=== PATIENT | female | born 1930 | race Caucasian/White ===

== ENCOUNTER 2017-04-09 12:43 | Inpatient (IN) | payer MEDICARE, OTHER ==
[~2017-04-09] VITALS: Ht 160 cm; Wt 58.5 kg
[~2017-04-09 12:43] MED LIST: AMLO10TA80 PO; OLME1TAB11 PO
[2017-04-09] MEDS ORDERED: PROP10TA10 GT (14:36)
[2017-04-09] MEDS ORDERED: ATOR20TA65 PO (14:36)
[2017-04-09] MEDS ORDERED: ACETAMINOPHEN 325MG TABLET PO PRN (18:51)
[2017-04-09] MEDS ORDERED: ONDANSETRON HCL 4MG/2ML VIAL IV PRN (19:00)
[2017-04-09 19:56] VITALS: BP 142/60
[2017-04-09 20:00] VITALS: BP 105/58
[2017-04-09 21:56] LABS: BASOPHILS % 0.4 % (0.0-2.0); EOSINOPHILS % 2.5 % (0.0-5.0); HEMATOCRIT. 34.1 % (36.0-48.0); LYMPHOCYTES % 27.5 % (20.0-50.0); MEAN CORPUSCULAR HEMOGLOBIN 31.7 pg (28.0-32.0); MEAN CORPUSCULAR VOLUME 90.6 fL (81.0-99.0); MONOCYTES % 9.6 % (2.0-8.0); PLATELET 189 x1000/uL (130-400); RED BLOOD CELL COUNT 3.77 mill/uL (4.2-5.4); RED CELL DISTRIBUTION WIDTH 13.1 % (11.6-14.6)
[2017-04-09 22:08] LABS: CHLORIDE 105 mEq/L (98-107)
[2017-04-09 22:23] LABS: CARBON DIOXIDE 27 mEq/L (21-32); HDL CHOLESTEROL 41 mg/dL (40-59); LDL CHOLESTEROL 59 mg/dL (5-100); TOTAL IRON BINDING CAPACITY 248 ug/dL (250-450)
[2017-04-09] MEDS: DEXT 5%/0.45% NACL 1000ML 1,000 ML IV SCH (23:23)
[2017-04-10] VITALS: BP 106/55
[2017-04-10 04:00] VITALS: BP 99/68
[2017-04-10] MEDS: LOSARTAN POTASSIUM 100 MG TABLET PO SCH (06:34)
[2017-04-10] MEDS: HYDROCHLOROTHIAZIDE 12.5MG CAPSULE PO SCH (06:35)
[2017-04-10 07:10] LABS: CLARITY URINE CLEAR (CLEAR); COLOR URINE YELLOW (YELLOW); GLUCOSE URINE NEGATIVE (NEGATIVE); KETONES URINE NEGATIVE (NEGATIVE); LEUKOCYTE ESTERASE URINE NEGATIVE (NEGATIVE); NITRITE URINE NEGATIVE (NEGATIVE); OCCULT BLOOD URINE 1+ (NEGATIVE); PH URINE 6.5 (4.5-8.0); PROTEIN URINE NEGATIVE (NEGATIVE); SPECIFIC GRAVITY URINE 1.013 (1.005-1.030); UROBILINOGEN URINE 0.2 E.U./dL (0.2-1.0)
[2017-04-10 07:44] LABS: PHOSPHORUS 3.1 mg/dL (2.5-4.9)
[2017-04-10 08:00] VITALS: BP 102/57
[2017-04-10] MEDS: AMLODIPINE 10MG TABLET PO SCH (09:00)
[2017-04-10] MEDS ORDERED: ERGOCALCIFEROL 50000UNITS CAPSULE PO SCH (09:00)
[2017-04-10] MEDS: DOCUSATE SODIUM 100MG CAPSULE PO SCH ×2 (09:07→17:52)
[2017-04-10] MEDS: ATORVASTATIN CALCIUM 20MG TABLET PO SCH (09:07)
[2017-04-10] MEDS: CYANOCOBALAMIN/FA/PYRIDOXINE TABLET PO SCH (09:07)
[2017-04-10] MEDS: PANTOPRAZOLE SODIUM 40 MG/VIAL IV SCH (09:07)
[2017-04-10] MEDS: DEXT 5%/0.45% NACL 1000ML 1,000 ML IV SCH ×2 (09:50→23:10)
[2017-04-10 12:00] VITALS: BP 93/49
[2017-04-10 16:00] VITALS: BP 107/66
[2017-04-10 20:00] VITALS: BP 108/67
[2017-04-11] VITALS: BP 111/84
[2017-04-11 04:00] VITALS: BP 122/65
[2017-04-11] MEDS: LOSARTAN POTASSIUM 100 MG TABLET PO SCH (07:32)
[2017-04-11] MEDS: HYDROCHLOROTHIAZIDE 12.5MG CAPSULE PO SCH (07:33)
[2017-04-11 08:00] VITALS: BP 119/70
[2017-04-11] MEDS: PANTOPRAZOLE SODIUM 40 MG/VIAL IV SCH (10:09)
[2017-04-11] MEDS: DOCUSATE SODIUM 100MG CAPSULE PO SCH ×2 (10:09→17:10)
[2017-04-11] MEDS: CYANOCOBALAMIN/FA/PYRIDOXINE TABLET PO SCH (10:09)
[2017-04-11] MEDS: ATORVASTATIN CALCIUM 20MG TABLET PO SCH (10:09)
[2017-04-11] MEDS: AMLODIPINE 10MG TABLET PO SCH (10:10)
[2017-04-11 12:00] VITALS: BP 129/71
[2017-04-11] MEDS: DEXT 5%/0.45% NACL 1000ML 1,000 ML IV SCH (15:02)
[2017-04-11 16:00] VITALS: BP 112/89
[2017-04-11 17:15] LABS: BASOPHILS % 0.4 % (0.0-2.0); EOSINOPHILS % 0.4 % (0.0-5.0); HEMATOCRIT. 36.7 % (36.0-48.0); HEMOGLOBIN. 13.2 g/dL (12.0-16.0); LYMPHOCYTES % 10.3 % (20.0-50.0); MEAN CORPUSCULAR HEMOGLOBIN 32.3 pg (28.0-32.0); MEAN CORPUSCULAR VOLUME 89.7 fL (81.0-99.0); MEAN PLATELET VOLUME 9.3 fl (7.4-10.4); MONOCYTES % 6.9 % (2.0-8.0); PLATELET 200 x1000/uL (130-400); RED BLOOD CELL COUNT 4.09 mill/uL (4.2-5.4); RED CELL DISTRIBUTION WIDTH 12.6 % (11.6-14.6)
[2017-04-11 17:34] LABS: PHOSPHORUS 2.8 mg/dL (2.5-4.9)
[2017-04-11 20:00] VITALS: BP 103/68
[2017-04-12] VITALS: BP 102/50
[2017-04-12 00:28] LABS: CLARITY URINE CLOUDY (CLEAR); COLOR URINE YELLOW (YELLOW); GLUCOSE URINE NEGATIVE (NEGATIVE); KETONES URINE NEGATIVE (NEGATIVE); LEUKOCYTE ESTERASE URINE 3+ (NEGATIVE); NITRITE URINE NEGATIVE (NEGATIVE); OCCULT BLOOD URINE 2+ (NEGATIVE); PROTEIN URINE TRACE (NEGATIVE); SPECIFIC GRAVITY URINE 1.007 (1.005-1.030); UROBILINOGEN URINE 0.2 E.U./dL (0.2-1.0)
[2017-04-12 04:00] VITALS: BP 101/57
[2017-04-12] MEDS: HYDROCHLOROTHIAZIDE 12.5MG CAPSULE PO SCH (06:56)
[2017-04-12] MEDS: LOSARTAN POTASSIUM 100 MG TABLET PO SCH (06:56)
[2017-04-12] MEDS: DEXT 5%/0.45% NACL 1000ML 1,000 ML IV SCH (07:10)
[2017-04-12 08:00] VITALS: BP 97/55
[2017-04-12] MEDS ORDERED: FAMOTIDINE 20MG/2ML VIAL IV SCH (09:00)
[2017-04-12] MEDS: AMLODIPINE 10MG TABLET PO SCH (09:00)
[2017-04-12] MEDS: ATORVASTATIN CALCIUM 20MG TABLET PO SCH (09:08)
[2017-04-12] MEDS: CYANOCOBALAMIN/FA/PYRIDOXINE TABLET PO SCH (09:08)
[2017-04-12] MEDS: DOCUSATE SODIUM 100MG CAPSULE PO SCH ×2 (09:08→17:00)
[2017-04-12 12:00] VITALS: BP_SYST 154; BP_SYST 98; BP_DIAS 50; BP_DIAS 90
[2017-04-12 16:00] VITALS: BP 111/61
[2017-04-12 18:00] VITALS: BP 111/61
== END 2017-04-12 16:50 | disposition home health service (06) | DRG 690 ==
LOC: 6EST 12:43
PROVIDERS: ADMIT Internal Medicine; ATTEND Internal Medicine
DX: N39.0 Urinary tract infection, site not specified (principal); E44.0 Moderate protein-calorie malnutrition; G82.20 Paraplegia, unspecified; J98.11 Atelectasis; E78.5 Hyperlipidemia, unspecified; F01.50 Vascular dementia, unspecified severity, without behavioral disturbance, psychotic disturbance, mood disturbance, and anxiety; F32.9 Major depressive disorder, single episode, unspecified; I10 Essential (primary) hypertension; I25.10 Atherosclerotic heart disease of native coronary artery without angina pectoris; I73.9 Peripheral vascular disease, unspecified; M19.90 Unspecified osteoarthritis, unspecified site; M48.06 Spinal stenosis, lumbar region; R62.7 Adult failure to thrive; G62.9 Polyneuropathy, unspecified; F41.9 Anxiety disorder, unspecified; M54.5 Low back pain; G89.29 Other chronic pain; E86.0 Dehydration; Z99.3 Dependence on wheelchair; I69.311 Memory deficit following cerebral infarction; Z79.899 Other long term (current) drug therapy; Z74.01 Bed confinement status; Z68.22 Body mass index [BMI] 22.0-22.9, adult
CPT/HCPCS: 36415; 71010; 80053; 80061; 80069; 81001; 81003; 82310; 83540; 83550; 83735; 84100; 84443; 84550; 85025; 87077; 87086; 87186; 93005; 93970; 97163; 97166; 97530; 97535; A6261; C1893; C9113; J3490; A4315